=== PATIENT | male | born 1955 | race African-American/Black ===

== ENCOUNTER 2025-01-02 04:39 | Inpatient (IN) | payer OTHER, MEDICARE ==
[~2025-01-02] VITALS: Ht 182.9 cm; Wt 129.3 kg
[2025-01-02] VITALS (77 sets, daily range): BP systolic 95–155; BP diastolic 57–98; PULSE 52–104; RESP 14–41; TEMP 36.8–39.4; O2SAT 86–100
[2025-01-02] MEDS: METHYLPREDNISOLONE SOD SUCC 125MG/2ML (ACT-O-VIAL) IV STA (04:58)
[2025-01-02] MEDS ORDERED: VANCOMYCIN 1.25GM/250ML 250 ML IV SCH (05:00)
[2025-01-02] MEDS: LORAZEPAM 2MG/ML UD SYRINGE IV SCH (05:09)
[2025-01-02] MEDS ORDERED: LORAZEPAM 2MG/ML INJ IV ONE (05:15)
[2025-01-02] MEDS: PROPOFOL 10MG/ML 100ML 100 ML IV ONE (05:18)
[2025-01-02] MEDS: PROPOFOL 200MG/20ML VIAL IV ONE (05:21)
[2025-01-02] MEDS: PIPERACILLIN/TAZO 3.375G/50ML 50 ML IV SCH ×2 (05:21→11:12)
[2025-01-02 05:24] LABS: BASOPHILS % 0.7 % (0.0-2.0); EOSINOPHILS % 0.5 % (0.0-5.0); HEMATOCRIT. 42.9 % (42.0-52.0); HEMOGLOBIN. 13.7 g/dL (14.0-18.0); LYMPHOCYTES % 54.1 % (20.0-50.0); MEAN CORPUSCULAR HEMOGLOBIN 30.8 pg (28.0-32.0); MEAN CORPUSCULAR HGB CONC 31.9 g/dL (31.0-37.0); MEAN CORPUSCULAR VOLUME 96.7 fL (80.0-94.0); MEAN PLATELET VOLUME 8.3 fl (7.4-10.4); MONOCYTES % 4.9 % (2.0-8.0); NEUTROPHILS % 39.8 % (40.0-76.0); PLATELET 294 x1000/uL (130-400); RED BLOOD CELL COUNT 4.44 mill/uL (4.7-6.1); RED CELL DISTRIBUTION WIDTH 14.1 % (11.6-14.6); WHITE BLOOD COUNT 15.6 x1000/uL (4.5-11.0)
[2025-01-02 05:30] LABS: CHLORIDE 102 mEq/L (98-107); POTASSIUM 3.8 mEq/L (3.5-5.1); SODIUM 139 mEq/L (136-145)
[2025-01-02 05:31] LABS: CALCIUM 9.4 mg/dL (8.7-10.4); CARBON DIOXIDE 23 mEq/L (21-32)
[2025-01-02 05:36] LABS: CREATININE 2.2 mg/dL (0.6-1.3); GLUCOSE 370 mg/dL (70-105); UREA NITROGEN BLOOD 27 mg/dL (9-23)
[2025-01-02 05:38] LABS: TROPONIN I HIGH SENSITIVITY 19 ng/L (3.0-53)
[2025-01-02 05:39] LABS: D-DIMER 0.37 mg/L FEU (<0.50); INR 1.1; PARTIAL THROMBOPLASTIN TIME 33.4 sec (23.4-31.0); PROTHROMBIN TIME 11.4 sec (9.6-11.0)
[2025-01-02] MEDS: IPRATROPIUM BROMIDE (0.02%) 0.5MG/2.5ML NEB HHN STA (05:40)
[2025-01-02] MEDS: ALBUTEROL (0.083%) 2.5MG/3ML NEB HHN STA (05:41)
[2025-01-02 05:52] LABS: BG BASE EXCESS -7.3 mmol/L (-2.0-3.0); BG CARBOXYHEMOGLOBIN 0.7 % (0.5-1.5); BG FRACTION INSPIRED OXYGEN 100; BG HCO3 ACT 22.5 mmol/L (21.0-28.0); BG METHEMOGLOBIN 0.3 % (0.5-1.5); BG OXYGEN SATURATION 84.8 % (94.0-98.0); BG PCO2 64.4 mmHg (35.0-48.0); BG PH 7.162 (7.350-7.450); BG PO2 63.2 mmHg (83.0-108.0); BG TOTAL HEMOGLOBIN 15.4 g/dL (13.5-17.5); BG VENT MODE VENT - AC
[2025-01-02] MEDS ORDERED: METOCLOPRAMIDE HCL 10MG/2ML VIAL IV PRN (06:00)
[2025-01-02] MEDS: SODIUM CHLORIDE 0.9% 1,000 ML IV SCH (06:00)
[2025-01-02] MEDS ORDERED: ACETAMINOPHEN 325MG TABLET PO PRN (06:00)
[2025-01-02] MEDS ORDERED: MORPHINE SULFATE 4 MG/ML INJ (FOR IV/IM USE) IV PRN (06:00)
[2025-01-02] MEDS: FUROSEMIDE 100MG/10ML VIAL IVP SCH (06:03)
[2025-01-02 06:09] LABS: ETHANOL BLOOD < 10 mg/dL (<10)
[2025-01-02 06:46] LABS: LACTIC ACID 6.9 mmol/L (0.4-2.0)
[2025-01-02] MEDS ORDERED: ETOMIDATE 2MG/ML 10ML VIAL IV ONE (08:00)
[2025-01-02] MEDS: PROPOFOL 10MG/ML 100ML 100 ML IV PRN (08:34)
[2025-01-02 08:42] LABS: BG BASE EXCESS -5.7 mmol/L (-2.0-3.0); BG CARBOXYHEMOGLOBIN 1.2 % (0.5-1.5); BG FRACTION INSPIRED OXYGEN 100; BG HCO3 ACT 21.8 mmol/L (21.0-28.0); BG METHEMOGLOBIN 0.3 % (0.5-1.5); BG OXYGEN SATURATION 89.8 % (94.0-98.0); BG OXYHEMOGLOBIN 88.5 % (94.0-98.0); BG PCO2 49.9 mmHg (35.0-48.0); BG PH 7.258 (7.350-7.450); BG PO2 63.6 mmHg (83.0-108.0); BG SAMPLE SITE RIGHT RADIAL; BG TOTAL HEMOGLOBIN 15.1 g/dL (13.5-17.5); BG VENT MODE VENT - AC
[2025-01-02] MEDS: PANTOPRAZOLE SODIUM 40 MG/VIAL IV SCH (09:01)
[2025-01-02 09:38] LABS: ALANINE AMINOTRANSFERASE 70 IU/L (10-49); ASPARTATE AMINOTRANSFERASE 81 IU/L (<34)
[2025-01-02 09:39] LABS: ALBUMIN 4.8 g/dL (3.2-4.8); BILIRUBIN DIRECT 0.2 mg/dL (<=3.0); BILIRUBIN TOTAL 0.9 mg/dL (0.1-1.0); PROTEIN TOTAL 7.2 g/dL (6.0-8.3)
[2025-01-02 09:50] LABS: TROPONIN I HIGH SENSITIVITY 228 ng/L (3.0-53)
[2025-01-02] MEDS ORDERED: DEXTROSE 50% WATER 50ML SYRINGE IV PRN (10:30)
[2025-01-02] MEDS: METHYLPREDNISOLONE SOD SUCC 40MG/ML (ACT-O-VIAL) IV SCH (11:12)
[2025-01-02] MEDS: FUROSEMIDE 40MG/4ML VIAL IVP SCH (11:12)
[2025-01-02] MEDS ORDERED: VANCOMYCIN 2GM PMX (XELLIA) 400 ML IV NR (12:00)
[2025-01-02] MEDS: BLOOD SUGAR DIAGNOSTIC STRIP TEST SCH (12:05)
[2025-01-02] MEDS: ASPIRIN 81MG TABLET PO SCH (12:08)
[2025-01-02] MEDS: FENTANYL 2500MCG/250ML PMX 250 ML IV PRN (12:42)
[2025-01-02] MEDS: INSULIN LISPRO 100 UNITS/ML SUBCUT SCH (12:45)
[2025-01-02 12:58] LABS: BG BASE EXCESS -4.6 mmol/L (-2.0-3.0); BG CARBOXYHEMOGLOBIN 0.4 % (0.5-1.5); BG DEOXYHEMOGLOBIN 1.6 % (0.0-5.0); BG FRACTION INSPIRED OXYGEN 100; BG HCO3 ACT 21.2 mmol/L (21.0-28.0); BG METHEMOGLOBIN 0.3 % (0.5-1.5); BG OXYGEN SATURATION 98.4 % (94.0-98.0); BG OXYHEMOGLOBIN 97.7 % (94.0-98.0); BG PCO2 41.7 mmHg (35.0-48.0); BG PH 7.324 (7.350-7.450); BG PO2 124.1 mmHg (83.0-108.0); BG SAMPLE SITE RIGHT FEMORAL; BG TOTAL HEMOGLOBIN 14.9 g/dL (13.5-17.5); BG VENT MODE VENT - AC/PC
[2025-01-02 13:31] LABS: CLARITY URINE CLOUDY (CLEAR); COLOR URINE YELLOW (YELLOW); GLUCOSE URINE 1+ (NEGATIVE); KETONES URINE NEGATIVE (NEGATIVE); LEUKOCYTE ESTERASE URINE NEGATIVE (NEGATIVE); NITRITE URINE NEGATIVE (NEGATIVE); OCCULT BLOOD URINE 3+ (NEGATIVE); PROTEIN URINE 1+ (NEGATIVE); SPECIFIC GRAVITY URINE 1.015 (1.005-1.030); UROBILINOGEN URINE 0.2 E.U./dL (0.2-1.0)
[2025-01-02 13:57] LABS: *AMPHETAMINES SCREEN URINE NEGATIVE (NEGATIVE); *BARBITURATES SCREEN URINE NEGATIVE (NEGATIVE); *BENZODIAZEPINES SCREEN URINE NEGATIVE (NEGATIVE); *COCAINE SCREEN URINE NEGATIVE (NEGATIVE); CANNABINOID URINE SCREEN NEGATIVE (NEGATIVE); ECSTASY MDMA SCREEN URINE NEGATIVE (NEGATIVE); METHADONE URINE SCREEN NEGATIVE (NEGATIVE); OPIATES URINE SCREEN NEGATIVE (NEGATIVE); PHENCYCLIDINE URINE SCREEN NEGATIVE (NEGATIVE)
[2025-01-02 14:00] LABS: RBC URINE 25-50 /hpf (0-2); SQUAMOUS EPITHELIAL CELL URINE NONE SEEN /lpf (RARE/1+); WBC URINE 0-2 /hpf (0-2)
[2025-01-02 14:01] LABS: AMORPHOUS SEDIMENT URINE 1+ /lpf; BACTERIA URINE 1+
[2025-01-02] MEDS ORDERED: NALOXONE HCL 0.4MG/ML VIAL IV PRN (14:45)
[2025-01-02 16:13] LABS: CREATINE KINASE MB FRACTION 2.5 ng/mL (0.5-3.6)
[2025-01-02 16:17] LABS: T4 FREE 1.49 ng/dL (0.89-1.76); THYROID STIMULATING HORMONE 1.09 uIU/mL (0.55-4.78)
[2025-01-02] MEDS: SODIUM CHLORIDE 0.9% 500 ML IV ONE (17:49)
[2025-01-02] MEDS: ACETAMINOPHEN 325MG TABLET PO PRN (19:46)
[2025-01-02] MEDS: ENOXAPARIN 150MG/ML SYR SUBCUT SCH (21:06)
[2025-01-02] MEDS: DEXT 5%/0.45% NACL 1000ML 1,000 ML IV SCH (22:45)
[2025-01-03] VITALS (84 sets, daily range): BP systolic 101–130; BP diastolic 58–113; PULSE 50–69; RESP 12–30; TEMP 36.3–37.2; O2SAT 94–100
[2025-01-03 05:45] LABS: BASOPHILS % 0.1 % (0.0-2.0); HEMATOCRIT. 36.3 % (42.0-52.0); LYMPHOCYTES % 7.9 % (20.0-50.0); MEAN CORPUSCULAR HEMOGLOBIN 30.7 pg (28.0-32.0); MEAN CORPUSCULAR HGB CONC 32.9 g/dL (31.0-37.0); MEAN CORPUSCULAR VOLUME 93.3 fL (80.0-94.0); MEAN PLATELET VOLUME 7.9 fl (7.4-10.4); MONOCYTES % 3.6 % (2.0-8.0); NEUTROPHILS % 88.4 % (40.0-76.0); PLATELET 234 x1000/uL (130-400); RED BLOOD CELL COUNT 3.89 mill/uL (4.7-6.1); RED CELL DISTRIBUTION WIDTH 13.6 % (11.6-14.6); WHITE BLOOD COUNT 10.4 x1000/uL (4.5-11.0)
[2025-01-03 06:00] LABS: POTASSIUM 4.4 mEq/L (3.5-5.1)
[2025-01-03 06:01] LABS: CALCIUM 8.9 mg/dL (8.7-10.4)
[2025-01-03 06:03] LABS: CREATINE KINASE MB FRACTION 2.1 ng/mL (0.5-3.6)
[2025-01-03 06:05] LABS: CREATININE 2.3 mg/dL (0.6-1.3)
[2025-01-03 08:28] LABS: BG CARBOXYHEMOGLOBIN 0.7 % (0.5-1.5); BG DEOXYHEMOGLOBIN 4.9 % (0.0-5.0); BG FRACTION INSPIRED OXYGEN 75; BG HCO3 ACT 21.2 mmol/L (21.0-28.0); BG OXYGEN SATURATION 95.1 % (94.0-98.0); BG OXYHEMOGLOBIN 94.4 % (94.0-98.0); BG PCO2 39.2 mmHg (35.0-48.0); BG PH 7.351 (7.350-7.450); BG PO2 79.3 mmHg (83.0-108.0); BG SAMPLE SITE RIGHT RADIAL; BG TOTAL HEMOGLOBIN 12.8 g/dL (13.5-17.5); BG VENT MODE VENT - AC/PC
[2025-01-03] MEDS ORDERED: ENOXAPARIN 150MG/ML SYR SUBCUT SCH (14:08)
[2025-01-03] MEDS: PROPOFOL 10MG/ML 100ML 100 ML IV SCH (14:09)
[2025-01-03] MEDS: PROPOFOL 10MG/ML 100ML 100 ML IV PRN (19:43)
[2025-01-03] MEDS: ENOXAPARIN 150MG/ML SYR SUBCUT SCH (21:34)
[2025-01-04] VITALS (80 sets, daily range): BP systolic 110–165; BP diastolic 47–107; PULSE 49–73; RESP 9–29; TEMP 36.5–37.2; O2SAT 90–100
[2025-01-04 01:35] LABS: BG BASE EXCESS -1.6 mmol/L (-2.0-3.0); BG DEOXYHEMOGLOBIN 3.2 % (0.0-5.0); BG FRACTION INSPIRED OXYGEN 75; BG HCO3 ACT 23.7 mmol/L (21.0-28.0); BG METHEMOGLOBIN 0.3 % (0.5-1.5); BG OXYGEN SATURATION 96.8 % (94.0-98.0); BG OXYHEMOGLOBIN 95.5 % (94.0-98.0); BG PCO2 42.7 mmHg (35.0-48.0); BG PH 7.363 (7.350-7.450); BG PO2 93.4 mmHg (83.0-108.0); BG SAMPLE SITE RIGHT RADIAL; BG TOTAL HEMOGLOBIN 12.4 g/dL (13.5-17.5); BG VENT MODE AC/PC
[2025-01-04 05:19] LABS: HEMATOCRIT. 35.2 % (42.0-52.0); HEMOGLOBIN. 11.5 g/dL (14.0-18.0); MEAN CORPUSCULAR HEMOGLOBIN 30.5 pg (28.0-32.0); MEAN CORPUSCULAR HGB CONC 32.8 g/dL (31.0-37.0); MEAN CORPUSCULAR VOLUME 93.2 fL (80.0-94.0); MEAN PLATELET VOLUME 8.2 fl (7.4-10.4); PLATELET 223 x1000/uL (130-400); RED BLOOD CELL COUNT 3.78 mill/uL (4.7-6.1); RED CELL DISTRIBUTION WIDTH 13.4 % (11.6-14.6); WHITE BLOOD COUNT 11.3 x1000/uL (4.5-11.0)
[2025-01-04 05:24] LABS: DIFFERENTIAL COMMENT 1
[2025-01-04 05:25] LABS: POTASSIUM 4.3 mEq/L (3.5-5.1)
[2025-01-04 05:27] LABS: CALCIUM 9.1 mg/dL (8.7-10.4)
[2025-01-04] MEDS: DOPAMINE 400MG/250ML PREMIX 250 ML IV PRN (08:44)
[2025-01-04] MEDS ORDERED: LORAZEPAM 2MG/ML UD SYRINGE IV PRN (08:45)
[2025-01-04] MEDS: IPRATROPIUM/ALBUTEROL 0.5-3(2.5)MG/3ML NEB NEB PRN (08:56)
[2025-01-04] MEDS: INSULIN GLARGINE 100 UNITS/ML SUBCUT SCH (10:00)
[2025-01-04] MEDS: BLOOD SUGAR DIAGNOSTIC STRIP TEST SCH (12:52)
[2025-01-04] MEDS: INSULIN LISPRO 100 UNITS/ML SUBCUT SCH (13:01)
[2025-01-04 14:17] LABS: PLATELET ESTIMATE NORMAL
[2025-01-04] MEDS: DOCUSATE SODIUM 250MG CAPSULE PO SCH (21:31)
[2025-01-05] VITALS: BP 134/74; PULSE 69; RESP 18; TEMP 36.9; TEMP 37; O2SAT 100
[2025-01-05 04:00] VITALS: BP 126/79; PULSE 64; RESP 18; TEMP 36.8; O2SAT 96
[2025-01-05 07:23] LABS: BASOPHILS % 0.1 % (0.0-2.0); EOSINOPHILS % 0.1 % (0.0-5.0); HEMATOCRIT. 33.4 % (42.0-52.0); HEMOGLOBIN. 11.3 g/dL (14.0-18.0); LYMPHOCYTES % 13.3 % (20.0-50.0); MEAN CORPUSCULAR HEMOGLOBIN 31.2 pg (28.0-32.0); MEAN CORPUSCULAR HGB CONC 33.7 g/dL (31.0-37.0); MEAN CORPUSCULAR VOLUME 92.8 fL (80.0-94.0); MEAN PLATELET VOLUME 8.2 fl (7.4-10.4); MONOCYTES % 5.6 % (2.0-8.0); NEUTROPHILS % 80.9 % (40.0-76.0); PLATELET 227 x1000/uL (130-400); RED CELL DISTRIBUTION WIDTH 13.4 % (11.6-14.6); WHITE BLOOD COUNT 8.5 x1000/uL (4.5-11.0)
[2025-01-05 07:24] LABS: CARBON DIOXIDE 31 mEq/L (21-32); CHLORIDE 105 mEq/L (98-107); POTASSIUM 3.8 mEq/L (3.5-5.1); SODIUM 141 mEq/L (136-145)
[2025-01-05 07:29] LABS: CREATININE 1.3 mg/dL (0.6-1.3); GLUCOSE 118 mg/dL (70-105)
[2025-01-05 07:30] LABS: UREA NITROGEN BLOOD 32 mg/dL (9-23)
[2025-01-05 07:32] LABS: PHOSPHORUS 3.6 mg/dL (2.5-4.9)
[2025-01-05 08:00] VITALS: BP 119/69; PULSE 51; RESP 20; TEMP 36.4; O2SAT 97
[2025-01-05] MEDS ORDERED: DOCUSATE SODIUM 250MG CAPSULE PO SCH (09:00)
[2025-01-05 12:00] VITALS: BP 123/76; PULSE 57; RESP 20; TEMP 36.6; O2SAT 97
[2025-01-05 14:53] VITALS: BP 129/61; PULSE 60; TEMP 98.1; O2SAT 98
== END 2025-01-05 15:37 | disposition short-term general hospital (02) | DRG 208 ==
LOC: ER 04:39 → CVICU 05:35 → EDBEDREQTM 05:38 → EDBEDREQ 05:38 → ENRESERV 06:55 → 5WST 01-04 19:13
PROVIDERS: ADMIT Internal Medicine; ATTEND Internal Medicine
PROC: 5A1945Z Respiratory Ventilation, 24-96 Consecutive Hours (ICD-10-PCS; principal; 2025-01-02)
PROC: 0BH17EZ Insertion of Endotracheal Airway into Trachea, Via Natural or Artificial Opening (ICD-10-PCS; 2025-01-02)
PROC: 5A09357 Assistance with Respiratory Ventilation, Less than 24 Consecutive Hours, Continuous Positive Airway Pressure (ICD-10-PCS; 2025-01-02)
DX: J96.01 Acute respiratory failure with hypoxia (principal); I50.43 Acute on chronic combined systolic (congestive) and diastolic (congestive) heart failure; I21.4 Non-ST elevation (NSTEMI) myocardial infarction; J18.9 Pneumonia, unspecified organism; I13.0 Hypertensive heart and chronic kidney disease with heart failure and stage 1 through stage 4 chronic kidney disease, or unspecified chronic kidney disease; N17.9 Acute kidney failure, unspecified; Z68.41 Body mass index [BMI] 40.0-44.9, adult; D64.9 Anemia, unspecified; E11.65 Type 2 diabetes mellitus with hyperglycemia; I44.7 Left bundle-branch block, unspecified; N18.9 Chronic kidney disease, unspecified; G47.33 Obstructive sleep apnea (adult) (pediatric); E66.01 Morbid (severe) obesity due to excess calories; I48.91 Unspecified atrial fibrillation; Z95.810 Presence of automatic (implantable) cardiac defibrillator; Z86.74 Personal history of sudden cardiac arrest
CPT/HCPCS: 31500; 31720; 36415; 36600; 71045; 71250; 76770; 80048; 80061; 80076; 80305; 80320; 81003; 82375; 82550; 82553; 82805; 82962; 83036; 83605; 83880; 84100; 84145; 84300; 84439; 84443; 84478; 84484; 85025; 85379; 86850; 86900; 87070; 93005; 93306; 94002; 94003; 94070; 94640; 94664; 97162; 97166; 98960; 99291; A4606; J1265; J1650; J1815; J1940; J2060; J2470; J2543; J2704; J2919; J3010; J3370; J3490; G0480